=== PATIENT | male | born 1935 | race Caucasian/White ===

== ENCOUNTER 2021-05-21 13:39 | Outpatient (CLI) | payer MEDICARE, SELFPAY ==
--- NOTE | ~2021-05-21 | XR_ITS ---
XR chest 2V 05/21/2021 14:06 Indication: Shortness of breath Procedure: 2 view chest Comparison: No prior studies for comparison. Findings: Patchy bilateral airspace disease, compatible with pneumonia. Cardiomegaly. There is athero sclerosis and ectasia of the aorta. There is elevation of the right diaphragm. No significant effusio n or pneumothorax. No acute osseous abnormality. Impression: 1: Patchy bilateral airspace disease, compatible with pneumonia. Reviewed, dictated and finalized at location A. NICAL CONSULTANT Impression: 1: Patchy bilateral airspace disease, compatible with pneumonia.
== END 2021-05-21 13:40 | disposition home or self-care (01) ==
LOC: ANHIMG 13:44
PROVIDERS: PCP Internal Medicine Nephrology; Visit Provider Internal Medicine Nephrology
DX: R06.02 Shortness of breath (principal); R91.8 Other nonspecific abnormal finding of lung field
CPT/HCPCS: 71046